=== PATIENT | female | born 1930 | race Caucasian/White ===

== ENCOUNTER 2018-10-16 09:14 | Emergency (ER) | payer OTHER, MEDICARE ==
[2018-10-16 09:38] VITALS: BP 161/68
--- NOTE | 2018-10-16 09:54 | UC ---
Lower Extremity/Ankle HPI - HPI Summary HPI Summary: Ms. Dove fell forward onto her bilateral knees 4 days ago. By 2 days ago her knees were feeling better but she began to develop pain in her left thigh and hip. She did a lot of walking 2 days ago and since that time the pain has been getting worse. She is able to bear weight but it's painful. 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 Onset/Duration: Gradual Onset, Lasting Days Severity Initially: Mild Severity Currently: Moderate Pain Intensity: 9 Aggravating Factor(s): Standing, Ambulation Alleviating Factor(s): Rest Able to Bear Weight: Yes - Allergies/Home Medications Allergies/Adverse Reactions: Allergies Allergy/AdvReac Type Severity Reaction Status Date / Time No Known Allergies Allergy Verified 10/16/18 09:38 Home Medications: Home Medications LORazepam [Ativan 0.5 MG TAB] 0.5 mg PO DAILY MDD 0.5 10/16/18 [History Confirmed 10/16/18] traMADol TAB* [Ultram*] 50 mg PO DAILY PRN MDD 1 10/16/18 [History Confirmed ] PMH/Surg Hx/FS Hx/Imm Hx Previously Healthy: Yes - Surgical History Surgical History: None - Social History Alcohol Use: Occasionally Substance Use Type: None Smoking Status (MU): Never Smoked Tobacco Review of Systems All Other Systems Reviewed And Are Negative: Yes Motor: Positive: Negative Neurovascular: Positive: Negative Musculoskeletal: Positive: Decreased ROM. Negative: Calf Tenderness Neurological: Positive: Negative Physical Exam - Summary Physical Exam Summary: She is nontoxic in appearance with stable vitals. She walks with an antalgic gait. Triage Information Reviewed: Yes Appearance: Well-Appearing, Pain Distress Vital Signs: Initial Vital Signs Temp 98.7 F 10/16/18 09:29 Pulse 75 10/16/18 09:29 Resp 16 10/16/18 09:29 BP 161/68 10/16/18 09:29 Pulse Ox 98 10/16/18 09:29 Vital Signs Reviewed: Yes Neck: Positive: Supple Abdominal Exam: Normal Musculoskeletal Exam: Other - She is tender to external rotation of her hip in the lateral and proximal aspect of her left thigh. She is tender to flexion and extension of the knee in the same area and she is tender to palpation in that area. Neurological Exam: Normal Skin Exam: Other - She's got resolving ecchymoses over her bilateral knees left worse than the right. Diagnostics - Radiology left hip Radiology Interpretation Completed By: Radiologist Summary of Radiographic Findings: No acute process Lower Extremity Course/Dx - Course Course Of Treatment: I think she is overdone it a bit on this trip up here. This seems like a muscle pain. She does have a bad disc in her back and there are some elements to this that could be radicular but she is clearly tender in the area and I think this is muscle strain. She has tried some tramadol at home and it hasn't really helped and I'm going to give her some [place]. She has a walker and is [place] on . - Differential Dx/Diagnosis Provider Diagnosis: Muscle strain of left thigh Discharge - Sign-Out/Discharge Documenting (check all that apply): Patient Departure All imaging exams completed and their final reports reviewed: Yes - Discharge Plan Condition: Stable Disposition: HOME Patient Education Materials: Muscle Strain (ED) Referrals: No Primary Care Phys,NOPCP [Primary Care Provider] - Additional Instructions: If you can take it easy this should heal up in a few days. If it's worsening or not improving please follow up with your PCP. - Billing Disposition and Condition Condition: STABLE Disposition: Home
== END 2018-10-16 10:47 | disposition home or self-care (01) ==
LOC: UCEAST 09:14
DX: S76.912A Strain of unspecified muscles, fascia and tendons at thigh level, left thigh, initial encounter (principal); W19.XXXA Unspecified fall, initial encounter; Y92.9 Unspecified place or not applicable
CPT/HCPCS: 99201; G0463